=== PATIENT | male | born 1940 | race Caucasian/White ===

== ENCOUNTER → 2016-08-07 | Outpatient (CLI) | payer MEDICARE, OTHER ==
[2016-08-07 09:45] LABS: ABSOLUTE BASOPHILS # (AUTO) 0.1 10^3/uL (0.0-0.2); ABSOLUTE EOSINOPHILS # (AUTO) 0.3 10^3/uL (0.0-0.6); ABSOLUTE LYMPHOCYTES (AUTO) 1.6 10^3/uL (0.5-4.7); ABSOLUTE MONOCYTES (AUTO) 0.6 10^3/uL (0.1-1.4); ABSOLUTE NEUT (AUTO) 5.2 10^3/uL (1.7-8.2); BASOPHILS % (AUTO) 1.3 % (0-2); HEMATOCRIT 40.8 % (37.9-51.0); HEMOGLOBIN 13.9 g/dL (13.5-17.0); HGB HCT DIFFERENCE 0.9; LYMPHOCYTES % (AUTO) 20.2 % (13-45); MEAN CORPUSCULAR HEMOGLOBIN 29.8 pg (27.0-33.4); MEAN CORPUSCULAR HGB CONC 34.2 g/dL (32.0-36.0); MEAN CORPUSCULAR VOLUME 87 fl (80-97); MONOCYTES % (AUTO) 7.7 % (3-13); RED BLOOD COUNT 4.68 10^6/uL (4.35-5.55); RED CELL DISTRIBUTION WIDTH 15.1 % (11.5-14.0); SEGMENTED NEUTROPHILS % (AUTO) 66.8 % (42-78); WHITE BLOOD COUNT 7.7 10^3/uL (4.0-10.5)
[2016-08-07 10:11] LABS: ALANINE AMINOTRANSFERASE 32 U/L (21-72); ALKALINE PHOSPHATASE 35 U/L (38-126); ANION GAP 12 (5-19); ASPARTATE AMINO TRANSFERASE 24 U/L (17-59); BILIRUBIN,DIRECT 0.5 mg/dL (0.0-0.4); BILIRUBIN,TOTAL 0.6 mg/dL (0.2-1.3); BLOOD UREA NITROGEN 15 mg/dL (7-20); CALCIUM 9.2 mg/dL (8.4-10.2); CARBON DIOXIDE 25 mmol/L (22-30); CHLORIDE 103 mmol/L (98-107); CREATININE RESULT 0.99 mg/dL (0.52-1.25); Direct HDL 19 mg/dL (>40); GLUCOSE 89 mg/dL (75-110); MAGNESIUM 1.8 mg/dL (1.6-2.3); POTASSIUM 3.6 mmol/L (3.6-5.0); SODIUM 140.4 mmol/L (137-145); TOTAL PROTEIN 6.7 g/dL (6.3-8.2); TRIGLYCERIDES 134 mg/dL (<150)
[2016-08-07 10:23] LABS: DIRECT LDL 47 mg/dL (<100)
== END ==
LOC: OD 08:07
PROVIDERS: ATTEND Internal Medicine
DX: I10 Essential (primary) hypertension (principal); I25.10 Atherosclerotic heart disease of native coronary artery without angina pectoris; E78.5 Hyperlipidemia, unspecified; R53.82 Chronic fatigue, unspecified; E03.9 Hypothyroidism, unspecified; R35.1 Nocturia
CPT/HCPCS: 36415; 80053; 80061; 83735; 84153; 84443; 85025

== ENCOUNTER 2017-01-26 08:18 | Day surgery (SDC) | payer MEDICARE, OTHER ==
--- NOTE | 2017-01-23 13:03 | HISTORY AND PHYSICAL E ---
History and Physical NAME: LISETTE RAMON : 1940 AGE: 76Y ADMITTED: 01/26/2017 ROOM: CHIEF COMPLAINT: Diverticulosis, history of polyps. HISTORY OF PRESENT ILLNESS: The patient saw me in 2002 for colon. He did have a rectal polyp resected in 2002. He did have polypectomy and this was a benign polyp. He did have upper GI showing reflux. 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 The patient presented at this time for colon screening. The patient did have another surgery 10/22/08. He did have right knee adhesion, left anterior thigh. History of benign intradermal melanocyte. The patient was seen 2008, he does have history of polyps. ALLERGIES: AMOXICILLIN, SULFA. PAST MEDICAL AND SURGICAL HISTORY: He did have cardiac cath, coronary artery disease, angina, hemorrhoids, polyps diverticulosis. In 2008 polyp ascending colon adenoma polyp. The patient seen by Dr. Iván Orozco. He did have colon exam 2012, diverticulosis and polyps. He did have upper scope 2012, benign looking gastric polyps, mild diverticulosis, small diverticula 0.5 cm in the duodenal bulb. Colon in 2012; hemorrhoids, mild proctitis, diffuse melanosis coli. The patient did have upper scope 2014, it shows no bleeding, no ulcers, biopsy negative H. pylori. Hemoglobin 14, hematocrit 42. The patient again did have evaluation for colorectal polyps, cardiac bypass. PHYSICAL EXAMINATION: VITAL SIGNS: Blood pressure 120/70, pulse 80, respirations 20, temperature 98. HEAD, EARS, EYES, NOSE AND THROAT: Normal. ABDOMEN: Soft. NEUROLOGIC: Exam negative. MEDICATION: The patient takes baby aspirin, Toprol, Diovan. The patient stopped his Mobic. CONCLUSION: 1. Colon screening. 2. History of polyps. PLAN: Colonoscopy scheduled for 01/26. DICTATING PHYSICIAN: ALISON SELLERS M.D. [id number] PHY#: [id number] ID: [id number] JOB#: [id number] ACCT: [id number] cc:ALISON SELLERS M.D. >
[~2017-01-26 08:18] MED LIST: EPINEPHRINE INJ 1 MG/10 ML DISP.SYRIN ONE; FENTANYL CITRATE INJ/PF 100 MCG/2 ML AMPUL ONE; FLUMAZENIL INJ 0.5 MG/5 ML VIAL ONE; GLUCAGON,HUMAN RECOMB 1 MG INJ ONE; GLYCOPYRROLATE INJ 0.4 MG/2 ML VIAL ONE; MIDAZOLAM 2 MG/2 ML INJ ONE; NALOXONE HCL INJ/PF 0.4 MG/1 ML SDV ONE; ONDANSETRON HCL INJ/PF 4 MG/2 ML SDV ONE
[2017-01-26] MEDS: MIDAZOLAM 2 MG/2 ML INJ ONE ×2 (08:54→08:59)
[2017-01-26 10:50] VITALS: BP 134/59
[2017-01-26 11:41] LABS: ABSOLUTE BASOPHILS # (AUTO) 0.1 10^3/uL (0.0-0.2); ABSOLUTE EOSINOPHILS # (AUTO) 0.3 10^3/uL (0.0-0.6); ABSOLUTE LYMPHOCYTES (AUTO) 2.1 10^3/uL (0.5-4.7); ABSOLUTE NEUT (AUTO) 8.9 10^3/uL (1.7-8.2); BASOPHILS % (AUTO) 0.8 % (0-2); EOSINOPHILS % (AUTO) 2.2 % (0-6); HEMATOCRIT 42.6 % (37.9-51.0); HEMOGLOBIN 14.6 g/dL (13.5-17.0); HGB HCT DIFFERENCE 1.2; LYMPHOCYTES % (AUTO) 16.7 % (13-45); MEAN CORPUSCULAR HGB CONC 34.2 g/dL (32.0-36.0); MEAN CORPUSCULAR VOLUME 88 fl (80-97); MONOCYTES % (AUTO) 7.7 % (3-13); RED BLOOD COUNT 4.86 10^6/uL (4.35-5.55); RED CELL DISTRIBUTION WIDTH 14.8 % (11.5-14.0); SEGMENTED NEUTROPHILS % (AUTO) 72.6 % (42-78); WHITE BLOOD COUNT 12.3 10^3/uL (4.0-10.5)
--- NOTE | 2017-01-26 13:10 | OPERATIVE REPORT E ---
Operative Report NAME: LISETTE RAMON : 1940 AGE: 76Y DATE OF SURGERY: 01/26/2017 ROOM: PREOPERATIVE DIAGNOSES: 1. COLON SCREENING. 2. HISTORY OF POLYPS. POSTOPERATIVE DIAGNOSES: 1. MULTIPLE RIGHT COLON POLYPS. 2. MELANOSIS COLI. 3. SIGMOID DIVERTICULOSIS. OPERATION: 1. Colonoscopy. 2. Three polypectomies. SURGEON: ALISON SELLERS M.D. TISSUE REMOVED OR ALTERED: 1. Polyp injected and resected in the descending colon. 2. Polyp injected and resected. Slight amount of bleeding which was controlled by cauterization of the resection site. 3. Another third polyp resected with a snare with no difficulties. 4. Patient did have a few more tiny polyps about 2 mm to 3 mm in size each; flat in the proximal ascending colon. FINDINGS: CECUM: Normal. Severe pigmentosus coli. ASCENDING COLON: Multiple polyps. The largest resected. Three polyps resected. TRANSVERSE COLON: Normal. DESCENDING SIGMOID COLON: Diverticulosis. Patient tolerated the procedure well. DISPOSITION: Discharged to his room in stable condition. PLAN: 1. Hold Plavix and aspirin and Mobic for 3 days. 2. Baseline CBC and CEA. 3. Awaiting histopathology. 4. Consideration of follow-up colonoscopy in 4 to 6 months, pending biopsy of polyps results. DICTATING PHYSICIAN: ALISON SELLERS M.D. [id number] PHY#: [id number] ID: [id number] JOB#: [id number] ACCT: [id number] cc:ALISON SELLERS M.D. >
--- NOTE | 2017-01-26 13:11 | OPERATIVE REPORT E ---
Operative Report NAME: LISETTE RAMON : 1940 AGE: 76Y DATE OF SURGERY: 01/26/2017 ROOM: ADDENDUM: HISTORY: Patient is a 76-year-old male known to have history of polyps. FINDINGS: Today's colonoscopy shows multiple polyps in the right colon; one of the polyps was about 1 cm, resected. It looks like an adenomatous polyp to me. There is another polyp about 0.50 cm resected. Again, looks adenomatous. The colonoscopy was difficult because of melanosis coli and the patient has mild bleeding with the second polypectomy. We had to cauterize it and watch it, so we did not collect any tissue during the procedure because of difficulties. Patient tolerated procedure well. No tissue available. The polyps, clinically and by endoscopy, look like adenomatous polyps, and he has a previous history of adenomas. PLAN: Patient needs to undergo followup colonoscopy 4 to 6 months or sooner if clinically indicated. DICTATING PHYSICIAN: ALISON SELLERS M.D. [id number] Y#: [id number] ID: [id number] JOB#: [id number] ACCT: [id number] cc:ALISON SELLERS M.D. >
--- NOTE | 2017-01-26 13:12 | DISCHARGE SUMMARY E ---
Discharge Summary NAME: LISETTE RAMON : 1940 AGE: 76Y ADMITTED: 01/26/2017 DISCHARGED: 01/26/2017 FINAL DIAGNOSIS: Colorectal polyps. HISTORY: A 76-year-old male underwent colon screening. He does have history of polyps. Today's colonoscopy showed 3 polyps resected. One of the resected polyps had oozing at the site of the resection, and this was cauterized with no difficulties. DISCHARGE PLAN: Full-liquid diet today. Soft, low-residue for 3 days. Hold aspirin, Plavix, and Mobic for 3 days. Awaiting biopsy results. Patient to see us in the office in the next few days. Consideration followup colonoscopy in 4-6 months pending lab and biopsy results. DICTATING PHYSICIAN: ALISON SELLERS M.D. [id number] PHY#: [id number] ID: [id number] JOB#: [id number] ACCT: [id number] cc:[facility] ALISON SELLERS M.D., NAGESH M.D. >
== END 2017-01-26 11:10 | disposition home or self-care (01) ==
LOC: END 08:18
PROVIDERS: ATTEND Specialist
PROC: 0DBK8ZX Excision of Ascending Colon, Via Natural or Artificial Opening Endoscopic, Diagnostic (ICD-10-PCS; 2017-01-26)
PROC: 0DBM8ZX Excision of Descending Colon, Via Natural or Artificial Opening Endoscopic, Diagnostic (ICD-10-PCS; principal; 2017-01-26 09:00)
PROC: 3E0H8GC Introduction of Other Therapeutic Substance into Lower GI, Via Natural or Artificial Opening Endoscopic (ICD-10-PCS; 2017-01-26 09:00)
DX: Z12.11 Encounter for screening for malignant neoplasm of colon (principal); D12.4 Benign neoplasm of descending colon; D12.2 Benign neoplasm of ascending colon; K57.30 Diverticulosis of large intestine without perforation or abscess without bleeding; K63.89 Other specified diseases of intestine; R97.0 Elevated carcinoembryonic antigen [CEA]; I25.10 Atherosclerotic heart disease of native coronary artery without angina pectoris; I20.9 Angina pectoris, unspecified; Z86.010 Personal history of colon polyps; Z88.0 Allergy status to penicillin; Z88.2 Allergy status to sulfonamides
CPT/HCPCS: 45385; 45381; 36415; 82378; 85025; J2250; J3010; J1610; J0171; J2310; J2405; J3490

== ENCOUNTER → 2017-09-28 | Outpatient (CLI) | payer MEDICARE, OTHER ==
[2017-09-28 11:11] LABS: ABSOLUTE BASOPHILS # (AUTO) 0.1 10^3/uL (0.0-0.2); ABSOLUTE EOSINOPHILS # (AUTO) 0.3 10^3/uL (0.0-0.6); ABSOLUTE LYMPHOCYTES (AUTO) 1.4 10^3/uL (0.5-4.7); ABSOLUTE MONOCYTES (AUTO) 0.6 10^3/uL (0.1-1.4); ABSOLUTE NEUT (AUTO) 5.3 10^3/uL (1.7-8.2); BASOPHILS % (AUTO) 0.9 % (0-2); EOSINOPHILS % (AUTO) 3.5 % (0-6); HEMATOCRIT 39.3 % (37.9-51.0); HEMOGLOBIN 13.8 g/dL (13.5-17.0); LYMPHOCYTES % (AUTO) 18.6 % (13-45); MEAN CORPUSCULAR VOLUME 86 fl (80-97); MONOCYTES % (AUTO) 8.5 % (3-13); PLATELET COUNT 154 10^3/uL (150-450); RED BLOOD COUNT 4.59 10^6/uL (4.35-5.55); RED CELL DISTRIBUTION WIDTH 15.1 % (11.5-14.0); SEGMENTED NEUTROPHILS % (AUTO) 68.5 % (42-78); TOTAL CELLS COUNTED % (AUTO) 100 %; WHITE BLOOD COUNT 7.7 10^3/uL (4.0-10.5)
[2017-09-28 11:30] LABS: ALANINE AMINOTRANSFERASE 20 U/L (21-72); ALBUMIN 4.1 g/dL (3.5-5.0); ALKALINE PHOSPHATASE 32 U/L (38-126); ANION GAP 11 (5-19); ASPARTATE AMINO TRANSFERASE 23 U/L (17-59); BILIRUBIN,DIRECT 0.4 mg/dL (0.0-0.4); BILIRUBIN,TOTAL 0.4 mg/dL (0.2-1.3); BLOOD UREA NITROGEN 16 mg/dL (7-20); CALCIUM 9.4 mg/dL (8.4-10.2); CARBON DIOXIDE 30 mmol/L (22-30); CHLORIDE 107 mmol/L (98-107); CHOLESTEROL 98.87 mg/dL (0-200); GLUCOSE 94 mg/dL (75-110); POTASSIUM 3.9 mmol/L (3.6-5.0); SODIUM 147.6 mmol/L (137-145); TOTAL PROTEIN 6.9 g/dL (6.3-8.2); TRIGLYCERIDES 182 mg/dL (<150)
[2017-09-28 11:41] LABS: DIRECT LDL 46 mg/dL (<100)
[2017-09-28 12:06] LABS: VLDL CHOLESTEROL 36.4 mg/dL (10-31)
== END ==
LOC: OD 09:52
PROVIDERS: ATTEND Internal Medicine
DX: I25.10 Atherosclerotic heart disease of native coronary artery without angina pectoris (principal); R35.1 Nocturia; I10 Essential (primary) hypertension; I73.9 Peripheral vascular disease, unspecified; E78.5 Hyperlipidemia, unspecified
CPT/HCPCS: 36415; 80053; 80061; 84153; 84443; 85025

== ENCOUNTER → 2018-06-26 | Outpatient (CLI) | payer MEDICARE, OTHER ==
--- NOTE | 2018-06-27 12:29 | Pulmonary Function Test ---
Pulmonary Function Test Date of Procedure:: 06/27/18 INDICATION:: Dyspnea Referring Provider: Dr. Stephon Hubbard Airplane Electrician: Deena Garcia, BASE FILLER OPERATOR, FOREST FIRE CONTROL OFFICER - Report Spirometry: Spirometry: pre-FVC:[3.87 L 106%] pre-FEV:1[2.79 L 99%] pre-FEV1/FVC %[72] predicted [77] [id number][1.80 L 65%] Lung Volume: Total lung capacity: 6.45 L 105% Vital capacity: 3.87 L 106% Inspiratory capacity: 2.05 L FRC N2: 4.40 L 134% ERV: 1.10 L RV: 2.58 L 98% RV/TLC %: 40 predicted 44 Diffusion Capactity: Diffusion Capacity: DLCO; 23.1 110% DLCO/VA; 4.00 117% Impression: Obstructive defect may be inferred from the decreased flow in FEF 25-75%. There is no restrictive ventilatory defect. There is no hyperinflation or air tra pping. Normal diffusion capacity.
== END ==
LOC: RT 12:45
PROVIDERS: ATTEND Internal Medicine
DX: R06.00 Dyspnea, unspecified (principal); I10 Essential (primary) hypertension; E78.5 Hyperlipidemia, unspecified; I25.10 Atherosclerotic heart disease of native coronary artery without angina pectoris; E03.9 Hypothyroidism, unspecified; K21.9 Gastro-esophageal reflux disease without esophagitis; I73.9 Peripheral vascular disease, unspecified; N40.0 Benign prostatic hyperplasia without lower urinary tract symptoms; I35.0 Nonrheumatic aortic (valve) stenosis
CPT/HCPCS: 94010; 94727; 94729

== ENCOUNTER → 2018-08-09 | Outpatient (CLI) | payer MEDICARE, OTHER ==
[2018-08-09 14:36] LABS: ABSOLUTE BASOPHILS # (AUTO) 0.1 10^3/uL (0.0-0.2); ABSOLUTE EOSINOPHILS # (AUTO) 0.2 10^3/uL (0.0-0.6); ABSOLUTE LYMPHOCYTES (AUTO) 1.4 10^3/uL (0.5-4.7); ABSOLUTE MONOCYTES (AUTO) 0.6 10^3/uL (0.1-1.4); ABSOLUTE NEUT (AUTO) 5.2 10^3/uL (1.7-8.2); BASOPHILS % (AUTO) 0.8 % (0-2); EOSINOPHILS % (AUTO) 3.2 % (0-6); HEMATOCRIT 39.6 % (37.9-51.0); HEMOGLOBIN 13.6 g/dL (13.5-17.0); LYMPHOCYTES % (AUTO) 18.1 % (13-45); MEAN CORPUSCULAR HEMOGLOBIN 29.8 pg (27.0-33.4); MEAN CORPUSCULAR HGB CONC 34.4 g/dL (32.0-36.0); MEAN CORPUSCULAR VOLUME 87 fl (80-97); MONOCYTES % (AUTO) 8.1 % (3-13); PLATELET COUNT 126 10^3/uL (150-450); RED BLOOD COUNT 4.57 10^6/uL (4.35-5.55); RED CELL DISTRIBUTION WIDTH 14.7 % (11.5-14.0); SEGMENTED NEUTROPHILS % (AUTO) 69.8 % (42-78); TOTAL CELLS COUNTED % (AUTO) 100 %; WHITE BLOOD COUNT 7.5 10^3/uL (4.0-10.5)
[2018-08-09 14:54] LABS: ALANINE AMINOTRANSFERASE 23 U/L (21-72); ALBUMIN 4.2 g/dL (3.5-5.0); ALKALINE PHOSPHATASE 35 U/L (38-126); ANION GAP 9 (5-19); ASPARTATE AMINO TRANSFERASE 19 U/L (17-59); BILIRUBIN,DIRECT 0.3 mg/dL (0.0-0.4); BILIRUBIN,TOTAL 0.4 mg/dL (0.2-1.3); BLOOD UREA NITROGEN 21 mg/dL (7-20); CALCIUM 9.3 mg/dL (8.4-10.2); CARBON DIOXIDE 27 mmol/L (22-30); CHLORIDE 108 mmol/L (98-107); CHOLESTEROL 93.38 mg/dL (0-200); GLUCOSE 92 mg/dL (75-110); SODIUM 143.5 mmol/L (137-145); TOTAL PROTEIN 6.6 g/dL (6.3-8.2); TRIGLYCERIDES 135 mg/dL (<150)
[2018-08-09 15:05] LABS: DIRECT LDL 56 mg/dL (<100)
== END ==
LOC: OD 13:26
PROVIDERS: ATTEND Internal Medicine
DX: I10 Essential (primary) hypertension (principal); E78.5 Hyperlipidemia, unspecified; I73.9 Peripheral vascular disease, unspecified; I25.10 Atherosclerotic heart disease of native coronary artery without angina pectoris; R53.83 Other fatigue
CPT/HCPCS: 36415; 80053; 80061; 84443; 85025

== ENCOUNTER → 2019-07-24 | Outpatient (CLI) | payer MEDICARE, OTHER ==
--- NOTE | 2019-07-24 09:32 | RADIOLOGY REPORT (SQ) ---
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 TECHNIQUE: Sagittal and Axial imaging includes T1, T2, STIR and gradient echo sequences. Coronal T2/ HASTE imaging. LIMITATIONS: Motion. FINDINGS: VISUALIZED UPPER ABDOMEN: Large renal cysts. SEGMENTATION: No transitional anatomy. The lowest well-developed disc space is labeled L5-S1. ALIGNMENT: Anatomic. VERTEBRAE: Intact. BONE MARROW: Normal. No marrow replacement or reactive changes. DISC SIGNAL: Desiccation multiple levels. POSTERIOR ELEMENTS: Generally intact. No pars defect evident. HARDWARE: None in the spine. CORD AND CONUS: Normal in size and signal intensity. Conus at the appropriate level. SOFT TISSUES: No aortic aneurysm seen. No bulky retroperitoneal adenopathy or mass. No paraspinal mas s or fluid. L1-L2: No significant spinal stenosis or exit foraminal stenosis. L2-L3: Disc bulge and facet arthropathy. Mild spinal stenosis. L3-L4: Small right lateral disc herniation contacts the exiting L3 nerve root. Mild spinal stenosis. L4-L5: Moderate spinal stenosis due to right paracentral disc herniation and facet arthropathy. Ther e is contact with the exiting right L4 nerve root and the transiting L5 nerve root. L5-S1: Broad-based disc herniation contacts both exiting nerve roots in the neural foramina. Minimal narrowing of the spinal canal. LOWER THORACIC: Incompletely imaged. No stenosis seen. SACRUM: Visualized upper sacrum intact. OTHER: No other significant findings. IMPRESSION: Several small disc herniations as described above. Moderate spinal stenosis L4-5. TECHNICAL DOCUMENTATION: JOB ID: [id number] 2010 [employer]- All Rights Reserved Reading location - IP/workstation name: [email or web address]
== END ==
LOC: RAD 08:00
PROVIDERS: ATTEND Internal Medicine
DX: M51.17 Intervertebral disc disorders with radiculopathy, lumbosacral region (principal); M48.07 Spinal stenosis, lumbosacral region
CPT/HCPCS: 72148

== ENCOUNTER → 2019-08-07 | Outpatient (CLI) | payer MEDICARE, OTHER ==
[~2019-08-07] MED LIST changes: +ALBUTEROL SULFATE 0.083% NEB 2.5 MG/3 ML AMPUL NEB ONE; -EPINEPHRINE INJ 1 MG/10 ML DISP.SYRIN ONE; -FENTANYL CITRATE INJ/PF 100 MCG/2 ML AMPUL ONE; -FLUMAZENIL INJ 0.5 MG/5 ML VIAL ONE; -GLUCAGON,HUMAN RECOMB 1 MG INJ ONE; -GLYCOPYRROLATE INJ 0.4 MG/2 ML VIAL ONE; -MIDAZOLAM 2 MG/2 ML INJ ONE; -NALOXONE HCL INJ/PF 0.4 MG/1 ML SDV ONE; -ONDANSETRON HCL INJ/PF 4 MG/2 ML SDV ONE
[2019-08-07 13:39] LABS: ARTERIAL BLOOD BASE EXCESS 2.7 mmol/L; ARTERIAL BLOOD H2CO3 1.24 mmol/L (1.05-1.35); ARTERIAL BLOOD HCO3 27.1 mmol/L (20-24); ARTERIAL BLOOD O2 SATURATION 97.2 % (94-98); ARTERIAL BLOOD PCO2 41.1 mmHg (35-45); ARTERIAL BLOOD PH 7.44 (7.35-7.45); ARTERIAL BLOOD PO2 91.8 mmHg (80-100); ARTERIAL BLOOD TOTAL CO2 28.4 mmol/L (23-27)
[2019-08-07 13:43] LABS: ARTERIAL BLOOD FIO2 21%
== END ==
LOC: RT 12:57
PROVIDERS: ATTEND Internal Medicine Cardiovascular Disease
DX: R06.02 Shortness of breath (principal)
CPT/HCPCS: 82803; 94729; 94727; 94060; A9270